=== PATIENT | female | born 1955 | race Caucasian/White ===

== ENCOUNTER 2016-12-27 00:36 | Emergency (ER) | payer OTHER ==
[2016-12-27 01:24] LABS: BASOPHIL 0.2 % (0-2); EOSINOPHIL 0.2 % (0-5); HCT 38.2 % (37.0-47.0); HGB 13.5 g/dl (12.5-16.0); LYMPHOCYTE 10.4 % (15-48); MCH 31.8 pg (25.0-31.0); MCHC 35.3 g/dL (32.0-36.0); MCV 89.9 fL (78.0-100.0); MONOCYTE 7.2 % (0-12); MPV 9.7 fL (6.0-9.5); PLT 233 K/uL (150-400); RBC 4.25 M/uL (4.20-5.40); RDW 12.8 % (11.5-14.0); WBC 8.2 K/uL (4.0-10.5)
[2016-12-27 01:29] LABS: PTT 25.5 SECONDS (23.2-31.4)
[2016-12-27 01:31] LABS: D-DIMER 0.3 ug/mLFEU (0.00-0.41)
[2016-12-27 01:32] LABS: ALBUMIN 4.5 g/dL (3.4-4.8); BILIRUBIN - TOTAL 0.2 mg/dL (0.1-1.0); CREATININE 0.8 mg/dL (0.5-1.0); GLOBULIN (CALCULATION) 2.3 g/dL (2.2-4.2); POTASSIUM 4.1 mmol/L (3.5-5.1); TOTAL PROTEIN 6.8 g/dL (6.4-8.3)
[2016-12-27 01:35] LABS: INR 0.9 (0.9-1.2); PROTHROMBIN TIME 11.8 SECONDS (11.7-14.0)
== END 2016-12-27 03:16 | disposition home or self-care (01) ==
LOC: FER 00:36
PROVIDERS: Emergency Medicine
DX: R07.81 Pleurodynia (principal); M54.9 Dorsalgia, unspecified; M62.838 Other muscle spasm; R11.10 Vomiting, unspecified; R05 Cough; Z86.718 Personal history of other venous thrombosis and embolism; Z88.2 Allergy status to sulfonamides
CPT/HCPCS: 36415; 71010; 80053; 84484; 85025; 85379; 85610; 85730; 93005; J1170; J1885; J2270; J2405

== ENCOUNTER 2021-12-18 09:54 | Emergency (ER) | payer MEDICARE, OTHER ==
[2021-12-18] MEDS ORDERED: KEFLEX250 MG PO (13:33)
== END 2021-12-18 13:46 | disposition home or self-care (01) ==
LOC: FER 09:54
DX: S61.012A Laceration without foreign body of left thumb without damage to nail, initial encounter (principal); F17.200 Nicotine dependence, unspecified, uncomplicated; Z23 Encounter for immunization; Z88.2 Allergy status to sulfonamides; Z88.8 Allergy status to other drugs, medicaments and biological substances; W26.0XXA Contact with knife, initial encounter; Y92.009 Unspecified place in unspecified non-institutional (private) residence as the place of occurrence of the external cause
CPT/HCPCS: 90471; 90715; 99283

== ENCOUNTER → 2022-01-16 | Day surgery (SDC) | payer MEDICARE, OTHER ==
[~2022-01-16] VITALS: Ht 160 cm; Wt 77.2 kg
[~2022-01-16] MED LIST: AZELASTINE205.5 MCG/; KEFLEX250 MG PO; MONTELUKAST SOD10 MG PO; OMEPRAZOLE40 MG PO; SYMBICORT 80-10.2 GM INH; VENTOLIN HFA18 GM INH; ZYRTEC10 M3 PO
== END | disposition home or self-care (01) ==
LOC: FAS 09:12
DX: K31.9 Disease of stomach and duodenum, unspecified (principal); K29.50 Unspecified chronic gastritis without bleeding; K31.7 Polyp of stomach and duodenum; K21.9 Gastro-esophageal reflux disease without esophagitis; K44.9 Diaphragmatic hernia without obstruction or gangrene; Z88.2 Allergy status to sulfonamides; Z88.8 Allergy status to other drugs, medicaments and biological substances
CPT/HCPCS: J2704; J7120